=== PATIENT | female | born 1980 | race Hispanic/Latino ===

== ENCOUNTER 2025-07-12 19:29 | Emergency (ER) | payer SELFPAY ==
[2025-07-12 19:37] VITALS: BP 152/83; PULSE 72; RESP 20; TEMP 36.9; O2SAT 100
--- NOTE | 2025-07-12 20:08 | ED_ITS ---
HPI - Skin/Abscess/Foreign Bdy General Chief complaint: Skin/Abscess/Foreign Body Stated complaint: Left Breast Problem Time Seen by Provider: 07/12/25 19:50 Source: patient and RN notes reviewed Mode of arrival: ambulatory Limitations: no limitations History of Present Illness HPI narrative: 44-year-old female presents Express Care complaining of left axilla pain. Patient reports a month ago she was seen in the ER for an axilla abscess, she said was not drained she was put on antibiotics and said her resolved. Patient in shaved a day ago reports increased redness and swelling and drainage to her left axilla. Patient denies any fevers, body eczema chills, nausea ,vomiting, or any other symptoms. Patient denies any significant past medical problemsa, no history of diabetes, no history of MRSA. Related Data Allergies Allergy/AdvReac Type Severity Reaction Status Date / Time erythromycin base Allergy Unknown Verified 05/12/16 19:23 Review of Systems Review of Systems: CONSTITUTIONAL: Denies fever, chills, or sweats. EYES: Denies visual changes, redness, or discharge. ENT: Denies rhinorrhea, congestion, sore throat, or otalgia. CARDIOVASCULAR: Denies chest pain, palpitations, or edema. RESPIRATORY: Denies cough or dyspnea. GASTROINTESTINAL: Denies abdominal pain, nausea, vomiting, or diarrhea. GENITOURINARY: Denies dysuria or hematuria. SKIN: Denies rash or itching. Positive for redness swelling drainage. MUSCULOSKELETAL: Denies back pain, joint pain, or myalgia. NEUROLOGIC: Denies headache, numbness, or weakness. PSYCHIATRIC: Denies anxiety or depression. All other systems reviewed are negative, except as documented in HPI. PMFSH Comments At the time of my signature, I reviewed and agree with the nursing past medical, surgical, social, and family history. There is no relevant family history pertinent to the patient complaint. Exam Narrative: GENERAL: This is a well-nourished, well-developed adult, in no apparent distress. They are non ill-appearing, nontoxic appearing. HEAD: normocephalic, atraumatic. EYES: Sclera clear/white. Conjunctiva normal. Vision is grossly intact. Extraocular movements intact EARS: External ears normal, Hearing grossly intact. NOSE: External nose normal THROAT: Mucous membranes moist, NECK: Neck supple, CARDIOVASCULAR: Regular rate and rhythm RESPIRATORY: Respiratory rate normal, respiratory effort nonlabored, no respiratory distress SKIN: Left axilla: There is an abscess present to the left axilla. It is erythematous and fluctuant with purulent drainage actively coming out of it. It is measuring approximately 3 cm x 3 cm. Is tender to palpate. There is surrounding erythema extending into the the anterior upper left chest. No induration. NEURO: awake, alert, and oriented to person, place and time. There were no obvious focal neurologic abnormalities. EXTREMITIES: No joint tenderness, effusion, or edema noted. Course Course Emergency Course: Portions of this record may have been created with voice recognition software Level of Care: Express Care Visit Vital Signs Vital signs: Vital Signs Temperature 98.5 F 07/12/25 19:37 Pulse Rate 72 07/12/25 19:37 Respiratory Rate 20 07/12/25 19:37 Blood Pressure 152/83 H 07/12/25 19:37 Pulse Oximetry 100 07/12/25 19:37 Oxygen Delivery Room Air 07/12/25 19:37 Temperature 98.5 F 07/12/25 19:37 Pulse Rate 72 07/12/25 19:37 Respiratory Rate 20 07/12/25 19:37 Blood Pressure 152/83 H 07/12/25 19:37 Pulse Oximetry 100 07/12/25 19:37 Oxygen Delivery Room Air 07/12/25 19:37 Reviewed MDM - Skin/Abscess/Foreign Bdy MDM Narrative Medical decision making narrative: Patient has abscess present the left axilla. It is actively draining with purulent drainage. Appears to be draining well. Recommended the patient to undergo incision and drainage as is it appears large enough that would benefit from improved drainage, there is also surrounding erythema which could suggest surrounding cellulitis. Patient refused to have the abscess drained since it is draining. Discussed with patient thoroughly about the benefits of proceeding with incision and drainage and the alternative therapy with just antibiotics therapy however without draining the abscess it could stop draining, become worse, or lead to a severe infection. Patient verbalized understanding of this information had elected to not undergo incision and drainage today would like to start antibiotic therapy and monitor symptoms closely at home. Discussed with patient to promote drainage at home with warm compresses. Wound culture is obtained and pending. Will send patient home doxycycline and cephalexin. Strict ER precautions discussed with patient, she needs to closely monitor it for the next 1-2 days. Advised patient if it stops draining or gets worse, worsening redness or, worsening swelling, fevers, body aches, chills, nausea, vomiting, or any serious concerns then she needs to go to the ER immediately as a get worse. Patient's vital signs hemodynamically stable, afebrile, no tachycardia. Negative SIRS criteria. She is in no apparent distress, nontoxic appearing. Differential Diagnosis Differential diagnosis: Likely abscess of skin or subcutaneous tissue, cellulitis and contact dermatitis Critical Care Time Critical Care Time Critical Care Time: No Discharge Plan Discharge Clinical Impression: Abscess of axilla, left Patient Disposition: Home Condition: Stable Instructions: Antibiotic Form, Abscess (ED) Additional Instructions: DO NOT pick at the area. This will only make the area worse and drive infection deeper. Shower and wash with soapy water. Keep area clean and dry. Take all the antibiotics as prescribed. Apply warm compresses 15-20 minutes at a time, few times a day. Make sure to keep a dressing in place especially while it is draining . Change dressing at least once daily or when visibly soiled Follow-up with PCP in 1-2 days. If you develops fevers, worsening redness, swelling, the wound stops draining, body aches, chills, he started feeling ill please go to the ER immediately. Patient Language: Lib[place] Prescriptions: New doxycycline monohydrate 100 mg capsule 100 mg PO BID 7 Days Qty: 14 0RF cephalexin 500 mg capsule 500 mg PO Q6H 7 Days Qty: 28 0RF Follow-up/Referrals: PHYSICIAN,[employer] [facility]IST[facility] [Primary Care Provider, Internal Medicine] Stand Alone Forms: Work/School Release IP Time of Disposition: 20:07
== END 2025-07-12 20:13 | disposition home or self-care (01) ==
DX: L02.412 Cutaneous abscess of left axilla (principal)
CPT/HCPCS: 87070; 87075; 87147; 87186; 99213; G0463